=== PATIENT | male | born 1955 | race Caucasian/White ===

== ENCOUNTER 2022-10-14 08:25 | Day surgery (SDC) | payer OTHER ==
[2022-09-29 12:23] LABS: Absolute Lymphocytes (CBC) 1.7 K/uL (0.7-4.9); Hematocrit 47.2 % (39.6-49.0); Lymphocytes % 24.8 % (15.3-44.8); MCV 91.7 fL (80-100); MPV 8.2 fL (7.6-11.3); RBC Red Blood Cell Count 5.15 M/uL (4.33-5.43)
[2022-09-29 12:28] LABS: Protime INR 1.02
--- NOTE | 2022-09-29 12:30 | RAD REPORT ---
EXAM DESCRIPTION: Latia Hernandez (2 Views)09/29/2022 12:21 pm CLINICAL HISTORY: Abdominal pain/preop for genitourinary surgery COMPARISON: None FINDINGS: The lungs appear clear of acute infiltrate. The heart is normal size IMPRESSION: No acute abnormalities displayed
[2022-09-29 12:36] LABS: Potassium 4.4 mmol/L (3.5-5.1)
[2022-10-14] MEDS ORDERED: Ringers Lactate 1,000 ML IV ONE (08:54)
[2022-10-14] MEDS ORDERED: CEFAZOLIN SODIUM 2 GM/VIAL ONE (08:54)
[2022-10-14] MEDS ORDERED: propofoL 200 MG/20 ML VIAL IV ONE (10:16)
[2022-10-14] MEDS ORDERED: FENTANYL CITR 100 MCG/2 ML ONE (10:16)
[2022-10-14] MEDS ORDERED: MIDAZOLAM HCL 2 MG/2 ML INJ ONE (10:17)
[2022-10-14] MEDS ORDERED: ONDANSETRON 4 MG/2 ML VIAL ONE (10:19)
[2022-10-14] MEDS ORDERED: LIDOCAINE 2% MPF 5 ML VIAL ONE (10:19)
[2022-10-14] MEDS ORDERED: EPHEDRINE SULF 50 MG/ML VIAL ONE (11:14)
[2022-10-14] MEDS ORDERED: CODEINE 30MG/APAP 300MG TAB PO PRN (11:31)
--- NOTE | 2022-10-14 11:56 | RAD REPORT ---
EXAM DESCRIPTION: RAD - Urethrocystogrphy Retrograde - 10/14/2022 11:46 am CLINICAL HISTORY: LEFT STENT COMPARISON: No comparisons FINDINGS/IMPRESSION: 6 intraoperative fluoroscopic images submitted showing cannulation of the left ureter and left double J ureteral stent placement. Fluoro time: 6 seconds Cumulative dose: 3 mGy
[2022-10-14] MEDS: FENTANYL CITR 100 MCG/2 ML ONE ×2 (12:20→12:25)
[2022-10-14 12:28] VITALS: O2SAT 100
--- NOTE | 2022-10-14 13:09 | OP ---
Surgeon: LAUREN DOMINIQUE Preoperative Diagnoses: Large volume left nephrolithiasis, 2 stones approximately 20 mm and 14 mm in diameter. Postoperative Diagnoses: Large volume left nephrolithiasis, 2 stones approximately 20 mm and 14 mm i n diameter. Principal Procedures: 1.Cystoscopy with left ureteral stent placement. 2.Left extracorporeal shockwave lithotripsy. Indication For Procedure: Mr. Cummins is a 66-year-old gentleman, recurrent stone former with large vol ume left nephrolithiasis. He has previously undergone percutaneous approaches to management of the s tones, and was counseled on options for management and elected for ESWL today, which he understood ma y need to be done in a staged approach given the size of the stones. Because of the stone burden and to be managed, I also recommended the stent be placed. Procedure In Detail: The patient was consented in the preoperative holding area before being transfe rred to operative suite where general anesthesia was induced. He was given Ancef 2 g IV antimicrobia l prophylaxis and pneumo boots were provided for DVT prophylaxis. He was placed in the lithotomy pos ition, padded and secured to the table appropriately and his genitalia was prepped with Hibiclens and draped in a standard fashion. The case was begun using a 22-Maldivian rigid cystoscope to traverse the urethra and into the bladder with ease. The bladder was decompressed of fluid and urine and there w as evidence of prior prostatectomy. The bladder was briefly surveyed, and there were no papillary cl osed lesions, foreign bodies or stones noted throughout. The ureteral orifices were orthotopic in lo cation, and the left ureteral orifice was cannulated using the tip of a 5-Maldivian ureteral access cath eter. Fluoroscopic guidance was used to pass a Sensor wire up the 5-Maldivian ureteral access catheter and the ureter coiling within the putative upper pole of the kidney. The stones were observed to be high in the upper pole of the kidney even superior to the point of the wire coiling suggestive that t he wire was actually in the renal pelvis. As a result, I passed a 6-Maldivian by 26 cm double-J uretera l stent over the wire and coiled it within the renal pelvis. A coil was visible cystoscopically with in the bladder. His bladder was then decompressed of fluid and urine, and he was transferred to a [facility] and then transferred to the shockwave lithotripsy room where the machinery was set up. He wa s then placed on the shockwave lithotripsy table with a water bath beneath his flank and the stones w ere targeted. Because the lower of the 2 stones, the larger of the 2, was overlying a rib, an IV flu id bag was placed beneath his rib cage on the left to displace his rib superiorly and the stone infer iorly. This was successful; and so the lower of the 2 stones were targeted fluoroscopically and then the therapeutic head was brought in for the shockwave lithotripsy machine. Shockwave lithotripsy wa s then begun ramping up over the course of about 500 shocks to a maximum power of 7. A 2-minute paus e was given at around 200-300 shocks. After about 1000 shocks, there was evident disillusionment of the stone, so after about 1500 shocks delivered, we then focused our attention on the upper most of t he 2 stones, this time removing the fluid bag from beneath his rib cage. That stone was successfully targeted, and then the shockwave lithotripsy was again initiated. After another 500-750 shocks deli chace, that stone was also noted to fragment quite easily, and a cloud of dust had moved into the upp er pole. An additional fragment that was somewhat dense had been displaced into the lower pole later ally. As a result, we targeted the more dense fragment in the lower pole and continued shockwave lit hotripsy for about 500 shocks until around 2700 shocks had been delivered. It did fragment as well a nd dissolve as evident fluoroscopically; so for the remaining 200-300 shocks, we targeted the cloud o f dust around the stent and superior in the upper pole region and in order to ensure complete fragmen tation and ease of passage. Shockwave lithotripsy was then discontinued after 3000 shocks had been d elivered. The patient was then transferred to a stretcher, awakened from general anesthesia, and the n transferred to the recovery room in a good condition. Complications: None. Discharge Disposition: He may follow up in the Urology Clinic within the next 3-6 weeks with a precl inic KUB to have the left ureteral stent removed if the stones are successfully fragmented. He will subsequently require a metabolic stone profile assessment to discern his propensity for recurrent sto ne forming events. WR/MODL Voice ID: [id number] Report ID: [id number]
[2022-10-14 13:14] VITALS: BP 130/73; TEMP 97
[2022-10-14] MEDS ORDERED: CODEINE 30MG/APAP 300MG TAB ONE (13:28)
== END 2022-10-14 14:00 | disposition home or self-care (01) ==
LOC: OR 08:25
PROVIDERS: ATTEND Urology
PROC: 0WHR8YZ Insertion of Other Device into Genitourinary Tract, Via Natural or Artificial Opening Endoscopic (ICD-10-PCS; principal; 2022-10-14 09:30)
PROC: 0T778DZ Dilation of Left Ureter with Intraluminal Device, Via Natural or Artificial Opening Endoscopic (ICD-10-PCS; 2022-10-14 09:30)
DX: N20.0 Calculus of kidney (principal); I10 Essential (primary) hypertension; I48.91 Unspecified atrial fibrillation; E78.00 Pure hypercholesterolemia, unspecified; G47.33 Obstructive sleep apnea (adult) (pediatric); E66.9 Obesity, unspecified; Z68.36 Body mass index [BMI] 36.0-36.9, adult; Z79.82 Long term (current) use of aspirin; Z87.891 Personal history of nicotine dependence; Z85.46 Personal history of malignant neoplasm of prostate; Z90.79 Acquired absence of other genital organ(s)
CPT/HCPCS: 36415; 50590; 51610; 71046; 74450; 80048; 85025; 85610; 87086; 87088; J2001; J2250; J2405; J2704; J3010; J7120